=== PATIENT | female | born 1975 | race Two or more races ===

== ENCOUNTER 2018-06-11 12:36 | Emergency (ER) | payer OTHER ==
[2018-06-11 13:03] VITALS: BP 123/85; PULSE 61; TEMP 97.8; BMI 19.7
[2018-06-11] MEDS ORDERED: DIPHTH,PERTUSS(ACELL),TET 0.5 ML DISP.SYRIN IM ONE ×2 (13:04→13:05)
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
== END 2018-06-11 13:35 | disposition home or self-care (01) ==
LOC: FER 12:36
PROC: 3E0234Z Introduction of Serum, Toxoid and Vaccine into Muscle, Percutaneous Approach (ICD-10-PCS; principal; 2018-06-11)
DX: S00.81XA Abrasion of other part of head, initial encounter (principal); Y04.2XXA Assault by strike against or bumped into by another person, initial encounter; Y93.9 Activity, unspecified; Y92.9 Unspecified place or not applicable
CPT/HCPCS: 90471; 90715; 99283-25